=== PATIENT | female | born 1990 | race Caucasian/White ===

== ENCOUNTER 2021-05-28 20:01 | Emergency (ER) | payer SELFPAY ==
[2021-05-28 20:06] VITALS: BP 106/67
== END 2021-05-28 20:41 | disposition left against medical advice (07) ==
LOC: ED 20:01
DX: R06.00 Dyspnea, unspecified (principal); R19.7 Diarrhea, unspecified; R11.0 Nausea; Z53.21 Procedure and treatment not carried out due to patient leaving prior to being seen by health care provider